=== PATIENT | male | born 1965 | race Caucasian/White ===

== ENCOUNTER 2017-07-06 07:43 | Emergency (ER) | payer SELFPAY ==
[2017-07-06] MEDS ORDERED: DILTIAZEM 125 MG in D5W 125 ML IV ONE (08:01)
[2017-07-06] MEDS ORDERED: DILTIAZEM 25 MG/5 ML VIAL IVP ONE (08:01)
[2017-07-06] MEDS ORDERED: NS 1,000 ML IV ONE ×3 (08:01→10:22)
--- NOTE | 2017-07-06 08:02 | EDPHY ---
H & P Time Seen by Provider: 07/06/17 08:01 HPI/ROS: Chief complaint. Palpitations HPI. 51-year-old male with history of atrial fibrillation presents with fast and irregular heartbeat for approximately 2 months. He notes that it is not worse today but he is"getting around to it". He previously been taking diltiazem metoprolol, and Eliquis. He is weaned off all meds over the past 2 years and not taking anything. Denies chest discomfort. Slight shortness of breath. Decreased energy over the last 2 months. No unusual leg pain or swelling. No abdominal pain. Similar symptoms to previous atrial fibrillation. ROS Constitutional. no fever/chills, no weakness Eyes. no problems with vision ENT. no sore throat, no nasal drainage Cardiovascular. Palpitations Respiratory. Slight shortness of breath Abdominal. no abdominal pain, no nausea/vomiting, no diarrhea . no problems urinating MS. no calf pain/swelling, no neck/back pain, no joint pain Skin. no rash Lymph. no swollen glands Neuro. no headache, no dizziness, no difficulty walking or with speech Past Medical/Surgical History: Atrial fibrillation with cardioversion Social History: , daily smoker, no alcohol Smoking Status: Current every day smoker Physical Exam: General Appearance: Alert well-developed male moderate distress vital signs significant heart rate 178 Eyes: Pupils equal and round no pallor or injection. ENT, Mouth: Mucous membranes are moist. Respiratory: There are no retractions, lungs are clear to auscultation. Cardiovascular: Irregularly irregular and fast Gastrointestinal: Abdomen is soft and nontender, no masses, bowel sounds normal. Neurological: Awake and alert, sensory and motor exams grossly normal. Skin: Warm and dry, no rashes. Musculoskeletal: Neck is supple nontender. Extremities symmetrical, full range of motion. Psychiatric: Patient is oriented X 3, there is no agitation. Constitutional: Initial Vital Signs Temperature (C) 36.7 C 07/06/17 07:50 Heart Rate 178 H 07/06/17 07:50 Respiratory Rate 20 07/06/17 07:50 Blood Pressure 138/88 H 07/06/17 07:50 O2 Sat (%) 98 07/06/17 07:50 O2 Delivery Mode Room Air Allergies/Adverse Reactions: No Known Allergies Allergy (Unverified 11/24/14 14:03) Home Medications: Medication Instructions Recorded Apixaban [Eliquis] 5 mg PO BID #60 tab 07/06/17 Diltiazem Cd [Cardizem ER 120 MG 120 mg PO DAILY #20 cap 07/06/17 (*)] Multivitamins [Multivitamin (*)] 1 each PO DAILY 07/06/17 Medical Decision Making - Diagnostics EKG Interpretation: EKG interpreted by me shows atrial fibrillation with right axis deviation. QRS significant for LVH by voltage criteria. Ventricular response is 188 Repeat EKG shows atrial fibrillation with ventricular response of 76 Post cardioversion EKG interpreted by me shows T-wave inversion in V2 and V3 that could be consistent with ischemia. Imaging Results: Imaging Impressions Chest X-Ray 07/06/17 08:02 Impression: No acute findings in the chest. One-view chest x-ray interpreted by me is normal Procedures: IV normal saline. Monitor. Diltiazem bolus and drip. Eliquis 5 mg by mouth Procedure: Conscious sedation. Indication: Cardioversion I was asked by Dr. Way to perform procedural sedation The patient is an appropriate candidate to tolerate procedural sedation. The patient's vital signs and mental status are appropriate. The risks, benefits and alternatives of the sedation were discussed with the patient. The patient is ASA classification 1. The patient's Mallampati airway score was 1 and the patient did meet the 3-3-2 airway measurements. A time out was completed. The patient was sedated with propofol 120 mg IV. The patient was monitored with continuous pulse oximetry, case monitor and end tidal CO2. There were no complications and no significant hypoxemia. I performed the sedation The total time I spent at the bedside during the procedural sedation was 20 minutes. The patient was examined after the procedural sedation and has returned to their pre-sedation baseline with normal vital signs and a normal examination. Cardioversion at 200 joules. Back to normal sinus rhythm ED Course/Re-evaluation: Re-evaluation at 8:50 a.m.. Ventricular response is now between 80 and 90. Blood pressure 109/88. Patient remains in atrial fibrillation Patient and I discussed laboratory evaluation, treatment plan including recommendation for admission. He expresses understanding I consulted and discussed case with Dr. Gutierrez, hospitalist, who agrees to the admission I consulted discussed case with Dr. Way, cardiology who will see the patient in the emergency department. Dr. Way sees the patient in the emergency department and he would like to do a ZAKI and attempt cardioversion. Patient has recovered fully. I did call consult with Dr. Way regarding the T-wave inversion in the anterior leads. He is aware of this and we will continue the treatment plan including prescription for diltiazem and Eliquis with follow-up by Dr. Way. Differential Diagnosis: Atrial fibrillation of unknown duration. Zaki shows no evidence of intracardiac thrombosis. Cardioversion to normal sinus rhythm. No evidence for acute coronary syndrome Critical Care Time: Critical care time exclusive procedures 40 min - Data Points Laboratory Results: Laboratory Results 07/06/17 08:01 07/06/17 08:01 07/06/17 07/06/17 07/06/17 08:01 08:01 08:01 WBC 8.62 10^3/uL 10^3/uL (3.80-9.50) RBC 5.44 10^6/uL 10^6/uL (4.40-6.38) Hgb 17.3 g/dL g/dL (13.7-17.5) Hct 49.4 % % (40.0-51.0) MCV 90.8 fL fL (81.5-99.8) MCH 31.8 pg pg (27.9-34.1) MCHC 35.0 g/dL g/dL (32.4-36.7) RDW 14.0 % % (11.5-15.2) Plt Count 220 10^3/uL 10^3/uL (150-400) MPV 9.1 fL fL (8.7-11.7) Neut % (Auto) 60.2 % % (39.3-74.2) Lymph % (Auto) 30.6 % % (15.0-45.0) [place] % (Auto) 7.4 % % (4.5-13.0) Eos % (Auto) 1.3 % % (0.6-7.6) Baso % (Auto) 0.2 % L % (0.3-1.7) Nucleat RBC Rel Count 0.0 % % (0.0-0.2) Absolute Neuts (auto) 5.18 10^3/uL 10^3/uL (1.70-6.50) Absolute Lymphs (auto) 2.64 10^3/uL 10^3/uL (1.00-3.00) Absolute Monos (auto) 0.64 10^3/uL 10^3/uL (0.30-0.80) Absolute Eos (auto) 0.11 10^3/uL 10^3/uL (0.03-0.40) Absolute Basos (auto) 0.02 10^3/uL 10^3/uL (0.02-0.10) Absolute Nucleated RBC 0.00 10^3/uL 10^3/uL (0-0.01) Immature Gran % 0.3 % % (0.0-1.1) Immature Gran # 0.03 10^3/uL 10^3/uL (0.00-0.10) PT 13.2 SEC SEC (12.0-15.0) INR 0.98 (0.83-1.16) APTT 26.5 SEC SEC (23.0-38.0) Sodium 144 mEq/L mEq/L (135-145) Potassium 4.2 mEq/L mEq/L (3.5-5.2) Chloride 108 mEq/L mEq/L (97-110) Carbon Dioxide 23 mEq/l mEq/l (22-31) Anion Gap 13 mEq/L mEq/L (8-16) BUN 14 mg/dL mg/dL (7-23) Creatinine 0.9 mg/dL mg/dL (0.7-1.3) Estimated GFR > 60 Glucose 131 mg/dL H mg/dL (70-100) Calcium 9.4 mg/dL mg/dL (8.5-10.4) Troponin I < 0.012 ng/mL ng/mL (0.000-0.034) Medications Given: Apixaban (Eliquis) 5 mg PO BID [facility] Stop: 01/02/18 08:59 Last Admin: 07/06/17 08:42 Dose: 5 mg Discontinued Medications Apixaban (Eliquis) 5 mg PO BID [facility] Stop: 01/02/18 08:14 Last Admin: 07/06/17 08:43 Dose: Not Given Diltiazem HCl (Cardizem 25 Mg/5 Ml Vial) 20 mg IVP EDNOW ONE Stop: 07/06/17 08:02 Last Admin: 07/06/17 08:06 Dose: 20 mg Diltiazem HCl 125 mg/ Dextrose 125 mls @ 0 mls/hr IV EDNOW ONE; As Directed PRN Reason: Protocol Stop: 07/06/17 08:02 Last Admin: 07/06/17 08:17 Dose: 125 mls Sodium Chloride (Ns) 1,000 mls @ 0 mls/hr IV EDNOW ONE; Wide Open PRN Reason: Protocol Stop: 07/06/17 08:02 Last Admin: 07/06/17 08:05 Dose: 1,000 mls Sodium Chloride (Ns) 1,000 mls @ 0 mls/hr IV ONCE ONE PRN Reason: Wide Open Stop: 07/06/17 10:21 Last Admin: 07/06/17 10:21 Dose: 1,000 mls Departure - Departure Disposition: Home, Routine, Self-Care Clinical Impression: Encounter for cardioversion procedure Atrial fibrillation Qualifiers: Atrial fibrillation type: unspecified Qualified Code(s): I48.91 - Unspecified atrial fibrillation Condition: Good Instructions: A-fib (Atrial Fibrillation) (ED) Additional Instructions: Begin diltiazem 1 pill daily today. Eliquis twice daily. Activity as tolerated Return for worsening symptoms. Call today and make a follow-up appointment with Dr. Way, cardiology. Referrals: NONE *PRIMARY CARE P,. [Primary Care Provider] - As per Instructions Randall Way MD [Medical Doctor] - 2-3 days, call for appt. Prescriptions: Apixaban [Eliquis] 5 mg PO BID #60 tab Diltiazem Cd [Cardizem ER 120 MG (*)] 120 mg PO DAILY #20 cap
--- NOTE | 2017-07-06 08:02 | CPEKG ---
Heart Rate: 188 RR Interval: 319 QRSD Interval: 80 QT Interval: 280 QTC Interval: 496 QRS [place]: 123 T Wave [place]: 15 EKG Severity - ABNORMAL ECG - EKG Impression: ATRIAL FIBRILLATION WITH RAPID V-RATE EKG Impression: RIGHT AXIS DEVIATION EKG Impression: CONSIDER LEFT VENTRICULAR HYPERTROPHY Electronically Signed By: Tahir Mendieta 06-Jul-2017 13:58:43
[2017-07-06] MEDS ORDERED: DILTIAZEM 50 MG/10 ML VIAL IV ONE (08:04)
[2017-07-06 08:10] LABS: PLATELET COUNT 220 10^3/uL (150-400)
[2017-07-06] MEDS ORDERED: APIXABAN 5 MG TAB PO SCH (08:15)
[2017-07-06 08:18] LABS: INR 0.98 (0.83-1.16); PROTIME(PATIENT) 13.2 SEC (12.0-15.0)
[2017-07-06] MEDS ORDERED: APIXABAN 2.5 MG TAB PO SCH ×2 (09:00)
--- NOTE | 2017-07-06 10:18 | PDCARCONS ---
Cardiology Consult Reason for Consult: Atrial fibrillation with rapid ventricular response. Chief Complaint: Palpitations, fatigue. Requesting Physician: Dr. Tahir Mendieta. History of Present Illness: 51-year-old male seen in the emergency department here at [facility]. He has a history of atrial fibrillation dating back to . At that time, he was seen by Dr. Betty Valentin. Apparently, he had developed mild congestive heart failure. He underwent a cardioversion with successful mormon of sinus rhythm. His congestive heart failure likewise resolved. He did well until 2014. Apparently, at that time, he had a recurrent episode of atrial fibrillation. He was started on medications to include metoprolol, Cardizem and Eliquis. He lapsed back into sinus rhythm spontaneously. Ultimately, these medications were weaned. He has not taken any of these medications for about 3 years now. He thinks that he has been in atrial fibrillation for about 6 weeks. He has had symptoms of an elevated heart rate, and irregularity to his pulse and symptoms of effort intolerance as well as dyspnea. He denies orthopnea, PND and edema. He states his symptoms are a little bit different than his heart failure symptoms back in . He has been extremely busy at work and as a result has not sought medical care. Because the symptoms did not improve he came to the emergency department today. On arrival here he was hemodynamically stable. His initial ECG demonstrated atrial fibrillation with a rapid ventricular response. He was given IV diltiazem which resulted in rate control. He was also given 5 mg of Eliquis. At the present time he states he feels better. He has not had any chest pain. He denies chest pressure. He has had mild exertional dyspnea. He denies fever , chills and sweats. He notes no lower extremity edema. There is no history of orthopnea or PND. History Information - Allergies/Home Medication List Allergies/Adverse Reactions: No Known Allergies Allergy (Unverified 11/24/14 14:03) Home Medications: NK [No Known Home Meds] 07/06/17 [Last Taken Unknown] I have personally reviewed and updated: family history, medical history, social history, surgical history Past Medical History: With the exception of atrial fibrillation he is otherwise healthy. - Surgical History Additional surgical history: Prior sinus polyp resection - Family History Negative for: CAD - Social History Smoking Status: Current every day smoker Alcohol Use: None Drug Use: None Cardiac History - Cardiac History Past Cardiac History: OTHER (PAF) Age in Years: < 65 Sex: Male Congestive Heart Failure History: No Hypertension History: No Stroke/TIA/Thromboembolism History: No Vascular Disease History: No Diabetes Mellitus: No [id number] Score: 0 Physical Exam Physical Exam: Temp Pulse Resp BP Pulse Ox 36.6 C 95 19 114/89 H 97 07/06/17 09:48 07/06/17 09:48 07/06/17 09:48 07/06/17 09:48 07/06/17 09:48 Constitutional: no apparent distress, appears nourished, not in pain Eyes: PERRL Ears, Nose, Mouth, Throat: moist mucous membranes Cardiovascular: irregularly irregular, No systolic murmur, No diastolic murmur, No JVD Peripheral Pulses: 2+: carotid (R), carotid (L) Respiratory: no respiratory distress, no rales or rhonchi, clear to auscultation Gastrointestinal: normoactive bowel sounds, soft, non-tender abdomen, no palpable masses, No tenderness, No ascites Genitourinary: No no bladder fullness Skin: warm, normal color Musculoskeletal: full muscle strength Neurologic: AAOx3 Psychiatric: interacting appropriately, not anxious Lab and Imaging 07/06/17 08:01 07/06/17 08:01 WBC 8.62 10^3/uL (3.80-9.50) 07/06/17 08:01 RBC 5.44 10^6/uL (4.40-6.38) 07/06/17 08:01 Hgb 17.3 g/dL (13.7-17.5) 07/06/17 08:01 Hct 49.4 % (40.0-51.0) 07/06/17 08:01 MCV 90.8 fL (81.5-99.8) 07/06/17 08:01 MCH 31.8 pg (27.9-34.1) 07/06/17 08:01 MCHC 35.0 g/dL (32.4-36.7) 07/06/17 08:01 RDW 14.0 % (11.5-15.2) 07/06/17 08:01 Plt Count 220 10^3/uL (150-400) 07/06/17 08:01 MPV 9.1 fL (8.7-11.7) 07/06/17 08:01 Neut % (Auto) 60.2 % (39.3-74.2) 07/06/17 08:01 Lymph % (Auto) 30.6 % (15.0-45.0) 07/06/17 08:01 [place] % (Auto) 7.4 % (4.5-13.0) 07/06/17 08:01 Eos % (Auto) 1.3 % (0.6-7.6) 07/06/17 08:01 Baso % (Auto) 0.2 % (0.3-1.7) L 07/06/17 08:01 Nucleat RBC Rel Count 0.0 % (0.0-0.2) 07/06/17 08:01 Absolute Neuts (auto) 5.18 10^3/uL (1.70-6.50) 07/06/17 08:01 Absolute Lymphs (auto) 2.64 10^3/uL (1.00-3.00) 07/06/17 08:01 Absolute Monos (auto) 0.64 10^3/uL (0.30-0.80) 07/06/17 08:01 Absolute Eos (auto) 0.11 10^3/uL (0.03-0.40) 07/06/17 08:01 Absolute Basos (auto) 0.02 10^3/uL (0.02-0.10) 07/06/17 08:01 Absolute Nucleated RBC 0.00 10^3/uL (0-0.01) 07/06/17 08:01 Immature Gran % 0.3 % (0.0-1.1) 07/06/17 08:01 Immature Gran # 0.03 10^3/uL (0.00-0.10) 07/06/17 08:01 PT 13.2 SEC (12.0-15.0) 07/06/17 08:01 INR 0.98 (0.83-1.16) 07/06/17 08:01 APTT 26.5 SEC (23.0-38.0) 07/06/17 08:01 Sodium 144 mEq/L (135-145) 07/06/17 08:01 Potassium 4.2 mEq/L (3.5-5.2) 07/06/17 08:01 Chloride 108 mEq/L (97-110) 07/06/17 08:01 Carbon Dioxide 23 mEq/l (22-31) 07/06/17 08:01 Anion Gap 13 mEq/L (8-16) 07/06/17 08:01 BUN 14 mg/dL (7-23) 07/06/17 08:01 Creatinine 0.9 mg/dL (0.7-1.3) 07/06/17 08:01 Estimated GFR > 60 07/06/17 08:01 Glucose 131 mg/dL (70-100) H 07/06/17 08:01 Calcium 9.4 mg/dL (8.5-10.4) 07/06/17 08:01 Troponin I < 0.012 ng/mL (0.000-0.034) 07/06/17 08:01 Visualized and Interpreted Chest x-ray results: No Chest X-ray Interpretation: no infiltrate Visualized and Interpreted imaging results: No Visualized and Interpreted EKG results: Yes EKG additional interpertation: Atrial fibrillation. A/P Assessment: 51-year-old male with history of paroxysmal atrial fibrillation with episodes of atrial fibrillation dating back to and again in 2014. He has a history of a single cardioversion back in by Dr. Betty Valentin. He has not taken any medications for the last 3 years. He presents now with symptoms of palpitations, elevated heart rate and effort intolerance. He is in atrial fibrillation with a rapid ventricular response on arrival. He is rate controlled following the administration of IV diltiazem. He has been given a single dose of Eliquis. On examination he appears to be nicely compensated. He has no indications of heart failure. He has not had any symptoms to suggest an acute coronary syndrome or PE. There is no indication of infection. Plan: 1. At the present time I think he can undergo a MYRA/cardioversion. If successful he can be discharged from the emergency department. 2. I will plan to see him back in the office within the next several weeks. 3. He will be discharged home on systemic anticoagulation and rate controlling agents. 4. As an outpatient he will have a regular echocardiogram and a overnight oximetry study. 5. Depending on his clinical course we may need to consider further therapies up to and including referral for ablation.
[2017-07-06] MEDS ORDERED: PROPOFOL 200 MG/20 ML VIAL ONE (10:20)
[2017-07-06] MEDS ORDERED: ATROPINE SULFATE 1 MG/10 ML SYR IVP ONE (10:22)
[2017-07-06] MEDS ORDERED: ATROPINE SULFATE 1 MG/10 ML SYR ONE (10:35)
[2017-07-06] MEDS ORDERED: PROPOFOL 200 MG/20 ML VIAL IVP ONE ×2 (10:55→11:15)
--- NOTE | 2017-07-06 12:02 | ECHO ---
[email or web address] [id number] Main: [phone] Fax: Transesophageal Echocardiography Name: CHIDI WATSON MR#: [id number] Study Date: 07/06/2017 Study Time: 10:57 AM Date of : 1965 Age: 51 year(s) Height: ( ) Weight: ( ) BSA: Gender: Male Examination: MYRA Indication: Pre Cardioversion Image Quality: Contrast: Requested by: Randall Way Heart Rate: Rhythm: BP: / Procedure Staff Manager Product: Damion José RDCS Reading Physician: Randall Way MD Requesting Provider: MYRA Exam Details Measurements: Chambers Valvular Assessment AV/MV Valvular Assessment TV/PV Normal Normal Normal Name Value Range Name Value Range Name Value Range Additional Measurements: Findings: Left Atrial Appendage: No thrombus in left appendage. There is good colorflow noted in the ADRIANE. Proceeded with successful elective DC cardioversion.. l1n (No Signature Object) Patient: CHIDI WATSON Study Date: 07/06/2017 Page 1 of 1 10:57 AM [id number]
[2017-07-06 12:30] VITALS: BP 99/63
--- NOTE | 2017-07-06 13:10 | CPIP ---
[f rep st] INVASIVE CARDIAC PROCEDURE DATE OF PROCEDURE: 07/06/2017 INDICATION: The patient is 51 years old, presents to the emergency department with atrial fibrillati on, rapid ventricular response. He is rate controlled on Cardizem. He has been started on Eliquis 5 mg, which was given 3 hours ago. PROCEDURE: Transesophageal echocardiogram/cardioversion. TECHNIQUE: Following informed consent and in the fasting state, the patient was sedated by Dr. Tahir Mendieta from the emergency department. After adequate sedation with propofol, the MYRA probe was adva nced to the GE junction. Adequate imaging of the left atrial appendage was performed. The left atri al appendage was free of thrombus. The MYRA probe was then removed from the body. The patient was ca rdioverted with a single 150 joule synchronized shock in a biphasic fashion. Normal sinus rhythm was restored. COMPLICATIONS: None. DISPOSITION: The patient will be recovered in the emergency department and discharged home later fartun mckeon. /[id number]/MODL
--- NOTE | 2017-07-07 10:05 | CPEKG ---
Heart Rate: 76 RR Interval: 789 QRSD Interval: 90 QT Interval: 396 QTC Interval: 446 QRS [place]: 68 T Wave [place]: 61 EKG Severity - ABNORMAL ECG - EKG Impression: ATRIAL FIBRILLATION, V-RATE 55-91 EKG Impression: LATERAL INFARCT, OLD Electronically Signed By: Farida Mullen 08-Jul-2017 17:04:36
--- NOTE | 2017-07-07 10:08 | CPEKG ---
Heart Rate: 57 RR Interval: 1053 P-R Interval: 156 QRSD Interval: 102 QT Interval: 476 QTC Interval: 464 P [place]: 70 QRS [place]: 106 T Wave [place]: 102 EKG Severity - ABNORMAL ECG - EKG Impression: SINUS RHYTHM EKG Impression: ATRIAL PREMATURE COMPLEX EKG Impression: RIGHT AXIS DEVIATION EKG Impression: ABNORMAL T, CONSIDER ISCHEMIA, ANT-LAT LEADS Electronically Signed By: Farida Mullen 08-Jul-2017 17:04:44
== END 2017-07-06 12:34 | disposition home or self-care (01) ==
LOC: UNDOADMIN 09:27
PROC: 5A2204Z Restoration of Cardiac Rhythm, Single (ICD-10-PCS; principal; 2017-07-06)
DX: I48.91 Unspecified atrial fibrillation (principal); Z79.01 Long term (current) use of anticoagulants
CPT/HCPCS: 96365; J0461; J2704